=== PATIENT | male | born 1965 | race Caucasian/White ===

== ENCOUNTER → 2018-03-24 | Outpatient (CLI) | payer OTHER ==
--- NOTE | 2018-03-24 09:33 | RAD ---
SMALL BOWEL SERIES History: blood found in stool sample a few weeks ago Comparison: None. Findings: Small bowel examination was performed. There is small calcification in the right upper quadrant of the abdomen of uncertain AP location, potentially in the gallbladder or kidney. Small bowel caliber is within normal limits. No appreciable stricture is identified of the small bowel. There is no evidence of obstruction. There is rapid transit of contrast through the bowel, seen in most of the colon by 20 minutes. Impression: 1. There is rapid transit of contrast through the bowel, seen throughout the colon by 20 minutes. Electronically signed by: Gurdeep Elias MD (03/24/2018 9:30 AM) [id number]
== END | disposition home or self-care (01) ==
LOC: RAD 08:03
PROVIDERS: ATTEND Internal Medicine Gastroenterology
DX: D64.9 Anemia, unspecified (principal)
CPT/HCPCS: 74250